=== PATIENT | male | born 2005 | race Caucasian/White ===

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

== ENCOUNTER 2024-04-25 10:54 | Emergency (ER) | payer BC ==
[2024-04-25] MEDS ORDERED: Ipratropium/Albuterol 3 ML NEB ONE (11:18)
[2024-04-25] MEDS ORDERED: Ondansetron PF 4 MG/2 ML Vial ONE (11:18)
[2024-04-25 11:46] LABS: #Lymphocytes 0.9 thou/uL (1.20-3.40); #Monocytes 0.6 thou/uL (0.11-0.59); #Neutrophils 4.5 thou/uL (1.40-6.50); %Basophils 0.4 % (0.0-1.0); %Eosinophils 0.3 % (0.0-10.0); %Lymphocytes 15.4 % (28.0-48.0); %Monocytes 9.6 % (0.0-4.0); %Neutrophils 74.2 % (31.0-61.0); Hemoglobin 14.6 g/dL (14.0-18.0); Mean Corpuscular HGB CONC 33.2 g/dL (32.0-36.0); Mean Corpuscular Hemoglobin 27.6 pg (25.0-35.0); Mean Corpuscular Volume 83.2 fl (78.0-98.0); Mean Platelet Volume 7.1 fL (7.4-10.4); Platelet Count 152 10x3/uL (130-400); Red Blood Cell (RBC) Count 5.29 mill/uL (4.00-5.20); White Blood Cell (WBC) Count 6.1 10x3/uL (4.8-10.8)
[2024-04-25 11:58] LABS: Anion Gap 13 mmol/L (10-20); BUN (Urea Nitrogen) 12 mg/dL (8.4-21.0); Calc. Creatinine Clearance 0 mL/min (70-130); Calcium 9.5 mg/dL (7.8-10.44); Carbon Dioxide 24 mmol/L (22-29); Chloride 106 mmol/L (98-107); Estimated GFR 85; Glucose 108 mg/dL (70-105); Potassium 4.4 mmol/L (3.5-5.1); Sodium 139 mmol/L (136-145)
== END 2024-04-25 12:20 | disposition home or self-care (01) ==
LOC: BURERS 10:54
DX: J06.9 Acute upper respiratory infection, unspecified (principal)
CPT/HCPCS: 80048; 85025; 87428; 94640; 96374; J2405; J7620